=== PATIENT | male | born 1960 | race African-American/Black ===

== ENCOUNTER 2019-01-19 17:52 | Emergency (ER) | payer OTHER ==
[2019-01-19 18:00] VITALS: BP 159/101; PULSE 70; TEMP 98.7; BMI 29.7
--- NOTE | 2019-01-19 18:35 | PDOC ---
Documentation entered by Alex Melton SCRIBE, acting as scribe for uLis Barba MD. Luis Barba MD: This documentation has been prepared by the Geronimo arriaga Aiswarya, SCRIBE, under my direction and personally reviewed by me in its entirety. I confirm that the documentation accurately reflects all work, treatment, procedures, and medical decision making performed by me. History of Present Illness - General Chief Complaint: Pain Stated Complaint: RECTAL PAIN Time Seen by Provider: 01/19/19 18:06 History Source: Patient Exam Limitations: No Limitations - History of Present Illness Initial Comments: 01/19/19 18:38 The patient is a 58 year old male, with no significant PMH, who presents to the emergency department complaining of possible hemorrhoid. Patient states he felt some discomfort for a while to the right rectum that progressively worsened today. Patient states mild pain to area. The patient denies any chest pain, shortness of breath, headache and dizziness.Denies fever, chills, nausea, vomit, diarrhea and constipation. Denies dysuria, frequency, urgency and hematuria. Allergies: NKDA Past surgical history: None reported Social history: None reported PCP: Ronny Victoria Past History - Past Medical History Allergies/Adverse Reactions: Allergies Allergy/AdvReac Type Severity Reaction Status Date / Time No Known Allergies Allergy Verified 01/19/19 17:55 Home Medications: Ambulatory Orders Phenyleph/Mineral Oil/Petrolat [Preparation H Ointment] 1 applic RC TID #1 oint 01/19/19 Witch Elizaebth [Preparation H Totables] 1 each TP TID #1 med..pad 01/19/19 COPD: No Kidney Stones: Yes - Suicide/Smoking/Psychosocial Hx Smoking Status: No Smoking History: Never smoked Have you smoked in the past 12 months: No Number of Cigarettes Smoked Daily: 0 Information on smoking cessation initiated: No Hx Alcohol Use: No Drug/Substance Use Hx: No Review of Systems - Review of Systems Able to Perform ROS?: Yes Comments:: 01/19/19 18:39 ROS: A complete review of 10 out of 10 review of systems is taken and is negative apart from what is previously mentioned below and in the HPI. *Physical Exam - Vital Signs Last Vital Signs Temp Pulse Resp BP Pulse Ox 98.7 F 70 18 159/101 H 99 01/19/19 17:52 01/19/19 17:52 01/19/19 17:52 01/19/19 17:52 01/19/19 17:52 - Physical Exam Comments: 01/19/19 18:39 Vitals: Triage Vital signs reviewed General Appearance: no acute distress, well nourished well developed, Abdomen: Soft, nondistended, normal bowel sounds, nontender to palpation Rectal:+Large prolapsed hemorrhoid to the right rectum Skin: Warm and dry, no rashes or lesions, no petechiae Neuro: AOX3; Psych: normal mood, normal affect Medical Decision Making - Medical Decision Making 01/19/19 18:31 Well-appearing no apparent distress on examination it appears to be a large protruding hemorrhoid We'll recommend hemorrhoid cream and follow up in 2-3 days to ensure adequate resolution if not patient may require GI consultation importance of follow-up discussed at length with patient and Findings, the need for follow-up and strict return instructions discussed with patient. *DC/Admit/Observation/Transfer Diagnosis at time of Disposition: Acute hemorrhoid - Discharge Dispostion Disposition: HOME Condition at time of disposition: Stable Decision to Admit order: No - Prescriptions Prescriptions: Phenyleph/Mineral Oil/Petrolat [Preparation H Ointment] 1 applic RC TID #1 oint Witch Elizabeth [Preparation H Totables] 1 each TP TID #1 med..pad - Referrals Referrals: Ronny Victoria MD [Primary Care Provider] - Erickson Enriquez MD [Staff Physician] - - Patient Instructions Printed Discharge Instructions: Hemorrhoids Additional Instructions: Use Preparation H cream and pads as directed 3 times a day. Follow-up with your primary care provider in 2-3 days. Please follow up with Dr. Bowers gastroenterology if symptoms do not improve within 2-3 days or if mass changes in size. - Post Discharge Activity
== END 2019-01-19 18:45 | disposition home or self-care (01) ==
LOC: FER 17:52
DX: K64.8 Other hemorrhoids (principal)
CPT/HCPCS: 99283-25